=== PATIENT | male | born 1955 | race Caucasian/White ===

== ENCOUNTER 2016-08-25 20:51 | Inpatient (IN) | payer OTHER ==
[~2016-08-25] VITALS: Ht 162.6 cm; Wt 63.0 kg
[~2016-08-25 20:51] MED LIST: ADVAIR 100/501 DISK IH; ADVAIR 250/501 DISK IH; ALPRAZOLAM0.25 M2 PO; BENADRYL25 MG PO; BUPROPION XL150 MG PO; DALIRESP500 MCG PO; DELTASONE20 M1 PO; DOK PLUS TABLE1 EACH PO; DOXYCYCLINE HY100 M3 PO; DUONEB 2.5-0.5 M3 ML AEROSOL; DUONEB 2.5-0.5 M3 ML IH; FEOSOL45 MG PO; FERROUS SULFAT325 MG PO; LEVAQUIN500 MG PO; LEVAQUIN750 MG PO; LEVOFLOXACIN750 MG PO; LIPITOR40 MG PO; LORATADINE10 M2 PO; MIRTAZAPINE7.5 MG PO; MUCINEX600 MG PO; NICOTINE PATCH1 EAC1 TD; NICOTINE PATCH1 EAC2 TD; NOHOMEMEDS; NOVOLOG PE100 UNITS/ SC; PANTOPRAZOLE SO40 MG PO; PREDNISONE TAPER PO; PREDNISONE10 MG PO; PREDNISONE20 MG PO; PREDNISONE5 MG PO; PREDNISONE50 MG PO; PROTONIX40 MG PO; PROVENTIL,2.5 MG/0.5 IH; PROVENTIL,2.5 MG/3 M IH; Proventil,Ventolin H IH; SLOW RELEASE I142 M1 PO; SPIRIVA1 INHALATI IH; THEO-DUR,THEOC100 MG PO; TYLENOL EXTRA500 MG PO; TYLENOL REGULA325 MG PO; VENTOLIN HFA18 GM IH; VITAMIN D31000 UNI2 PO; VITAMIN D31000 UNIT PO; WELLBUTRIN XL150 MG PO
[2016-08-25 21:28] LABS: EOSINOPHIL (%) 0.1 % (0-5); HEMATOCRIT 39.9 % (38.0-50.0); IMMATURE GRANULOCYTE (%) 0.5 % (0.0-0.7); IMMATURE GRANULOCYTE COUNT 0.1 K/uL; INSTRUMENT ABS NEUTROPHIL CT 10.7 K/uL; LYMPHOCYTE COUNT 0.5 K/uL (1.0-2.8); MCH 27.9 PG (29.0-34.0); MCHC 29.6 G/DL (30.0-36.0); MCV 94.3 FL (86-99); MEAN PLAT.VOLUME 9.9 uM^3 (9.0-12.4); MONOCYTE (%) 4.8 % (3-12); MONOCYTE COUNT 0.6 K/uL (0-0.8); NEUTROPHIL (%) 90.1 % (45-76); NEUTROPHIL COUNT 10.7 K/uL (1.8-6.4); PLATELET COUNT 316 K/uL (156-360); RBC DIS.WIDTH-CV 13.3 % (11.8-14.6); RBC DIS.WIDTH-SD 46.2 % (39-53); RED BLOOD COUNT 4.23 M/uL (4.00-5.50); WHITE BLOOD COUNT 11.9 K/uL (4.1-10.2)
[2016-08-25 21:37] LABS: CHLORIDE 96 mEq/L (99-109); POTASSIUM 3.9 mEq/L (3.7-5.4); SODIUM 144 mEq/L (136-147)
[2016-08-25 21:38] LABS: INTER. NORMALIZED RATIO 1.1; PROTHROMBIN TIME 11.3 (9.2-11.2)
[2016-08-25 21:39] LABS: GLUCOSE 120 mg/dL (70-99)
[2016-08-25 21:40] LABS: ANION GAP 11 MEQ/L (2-14)
[2016-08-25 21:41] LABS: TOTAL BILIRUBIN 0.2 mg/dL (0.0-1.0)
[2016-08-25 21:43] LABS: ALKALINE PHOSPHATASE 71 IU/L (3-129); GFR ESTIMATE (CALCULATED) > 59 mL/min/
[2016-08-25 21:44] LABS: UREA NITROGEN (BUN) 19 mg/dL (9-23)
[2016-08-25 21:46] LABS: CREATINE KINASE 67 IU/L (1-294); TOTAL CK 67 IU/L (1-294)
[2016-08-25 21:49] LABS: TROP-I INTERPRETATION NEGATIVE; TROPONIN-I < 0.01 ng/mL (0.0-0.30)
[2016-08-25 21:56] LABS: CK-MB 4.2 ng/mL (0.0-4.9)
[2016-08-25] MEDS ORDERED: FOLIC ACID1 MG PO (21:58)
[2016-08-25] MEDS ORDERED: INCRUSE ELLI62.5 MCG IH (21:59)
[2016-08-25] MEDS ORDERED: LEVAQUIN750 MG PO (22:00)
[2016-08-25] MEDS ORDERED: LOPRESSOR25 MG PO (22:01)
[2016-08-25] MEDS ORDERED: PRAVACHOL20 MG PO (22:02)
[2016-08-25] MEDS ORDERED: PREDNISONE2.5 MG PO (22:03)
[2016-08-25] MEDS ORDERED: SENNA LAX8.6 MG PO (22:04)
[2016-08-25] MEDS ORDERED: THEOPHYLLINE400 MG PO (22:05)
[2016-08-25] MEDS ORDERED: CYANOCOBALAM1000 MCG PO (22:06)
[2016-08-25] MEDS ORDERED: ATIVAN0.5 MG PO ×2 (22:08→22:14)
[2016-08-25] MEDS ORDERED: VITAMIN C250 MG PO (22:08)
[2016-08-25] MEDS ORDERED: TESSALON PERLE100 MG PO (22:10)
[2016-08-25] MEDS ORDERED: ZOVIRAX OINTMEN15 GM TP (22:12)
[2016-08-25] MEDS ORDERED: ZYRTEC10 M3 PO (22:13)
[2016-08-25] MEDS ORDERED: DUONEB 2.5-0.5 M3 ML AEROSOL (22:13)
[2016-08-25] MEDS ORDERED: PREPARATION H O28 GM PR (22:14)
[2016-08-25] MEDS ORDERED: TUMS500 MG PO (22:15)
[2016-08-25 22:38] LABS: INFLUENZA A VIRAL ANTIGEN NEGATIVE; INFLUENZA B VIRAL ANTIGEN POSITIVE
[2016-08-26 01:43] LABS: BASE EXCESS 14.6 mEq/L (-3 to +3); BICARBONATE 41.2 mEq/L (22-26); CARBOXY HGB 1.9 % (0-5); COMMENTS - BLOOD GASES A+C+; DEVICE NC; METHEMOGLOBIN 1.1 % (0-1.5); O2 FLOW 3 L/MIN; PCO2 62 mm Hg (35-45); PO2 49 mm Hg (80-100); SITE LR; TOTAL RESP RATE 22 resp/min; pH 7.43 (7.35-7.45)
[2016-08-26 01:59] VITALS: BP 142/82
[2016-08-26 07:56] VITALS: BP 137/80
[2016-08-26 11:46] VITALS: BP 132/81
[2016-08-26 15:36] VITALS: BP 135/86
[2016-08-26 19:00] VITALS: BP 158/90
[2016-08-26 19:50] LABS: BASE EXCESS 12.7 mEq/L (-3 to +3); BICARBONATE 40.7 mEq/L (22-26); CARBOXY HGB 2.1 % (0-5); COMMENTS - BLOOD GASES A+C+; DEVICE NCH; METHEMOGLOBIN 1.4 % (0-1.5); O2 FLOW 9 L/MIN; PCO2 72 mm Hg (35-45); PO2 52 mm Hg (80-100); SITE LR; TOTAL RESP RATE 22 resp/min; pH 7.36 (7.35-7.45)
[2016-08-26 21:42] LABS: METH RESISTANT S AUREUS PCR NEGATIVE (NEGATIVE)
[2016-08-26 21:45] LABS: PROBE CHECK PASS; SPECIMEN PROCESSING CONTROL PASS
[2016-08-27 00:28] VITALS: BP 142/72
[2016-08-27 04:27] VITALS: BP 128/80
[2016-08-27 07:20] LABS: HEMATOCRIT 32.2 % (38.0-50.0); MCH 27.4 PG (29.0-34.0); MCHC 29.2 G/DL (30.0-36.0); MCV 93.9 FL (86-99); MEAN PLAT.VOLUME 10.5 uM^3 (9.0-12.4); PLATELET COUNT 249 K/uL (156-360); RBC DIS.WIDTH-CV 13.6 % (11.8-14.6); RBC DIS.WIDTH-SD 46.9 % (39-53); RED BLOOD COUNT 3.43 M/uL (4.00-5.50)
[2016-08-27 07:31] LABS: ANION GAP 4 MEQ/L (2-14); CHLORIDE 101 MEQ/L (99-109); GFR ESTIMATE (CALCULATED) > 59 mL/min/; GLUCOSE 139 mg/dL (70-99); POTASSIUM 4.2 MEQ/L (3.7-5.4); SAMPLE HEMOLYSIS CHECK 0; SAMPLE ICTERIC CHECK 0; SAMPLE LIPEMIA CHECK 0; SODIUM 145 MEQ/L (136-147); UREA NITROGEN (BUN) 19 mg/dL (9-23)
[2016-08-27 16:00] VITALS: BP 136/95
[2016-08-27 21:01] VITALS: BP 139/85
[2016-08-27 23:45] VITALS: BP 123/78
[2016-08-28 04:06] VITALS: BP 124/66
[2016-08-28 07:21] LABS: EOSINOPHIL (%) 0 % (0-5); HEMATOCRIT 34.1 % (38.0-50.0); IMMATURE GRANULOCYTE (%) 1.1 % (0.0-0.7); IMMATURE GRANULOCYTE COUNT 0.1 K/uL; INSTRUMENT ABS NEUTROPHIL CT 10.4 K/uL; LYMPHOCYTE COUNT 0.2 K/uL (1.0-2.8); MCH 27.5 PG (29.0-34.0); MCHC 28.7 G/DL (30.0-36.0); MCV 95.8 FL (86-99); MEAN PLAT.VOLUME 10.6 uM^3 (9.0-12.4); MONOCYTE (%) 2.8 % (3-12); MONOCYTE COUNT 0.3 K/uL (0-0.8); NEUTROPHIL (%) 94.2 % (45-76); NEUTROPHIL COUNT 10.4 K/uL (1.8-6.4); PLATELET COUNT 282 K/uL (156-360); RBC DIS.WIDTH-CV 13.7 % (11.8-14.6); RBC DIS.WIDTH-SD 48.7 % (39-53); RED BLOOD COUNT 3.56 M/uL (4.00-5.50); WHITE BLOOD COUNT 11.1 K/uL (4.1-10.2)
[2016-08-28 08:19] LABS: ANION GAP 7 MEQ/L (2-14); CHLORIDE 100 MEQ/L (99-109); GFR ESTIMATE (CALCULATED) > 59 mL/min/; GLUCOSE 151 mg/dL (70-99); POTASSIUM 4.1 MEQ/L (3.7-5.4); SAMPLE HEMOLYSIS CHECK 0; SAMPLE ICTERIC CHECK 0; SAMPLE LIPEMIA CHECK 0; SODIUM 146 MEQ/L (136-147); UREA NITROGEN (BUN) 25 mg/dL (9-23)
[2016-08-28 08:22] VITALS: BP 149/89
[2016-08-28 12:30] VITALS: BP 134/67
[2016-08-28 16:01] VITALS: BP 141/81
[2016-08-28 19:40] VITALS: BP 139/87
[2016-08-28 23:20] VITALS: BP 125/80
[2016-08-29 03:00] VITALS: BP 118/85
[2016-08-29 06:59] LABS: EOSINOPHIL (%) 0 % (0-5); IMMATURE GRANULOCYTE (%) 1.1 % (0.0-0.7); IMMATURE GRANULOCYTE COUNT 0.1 K/uL; INSTRUMENT ABS NEUTROPHIL CT 8.3 K/uL; LYMPHOCYTE COUNT 0.2 K/uL (1.0-2.8); MCH 27.6 PG (29.0-34.0); MCHC 28.8 G/DL (30.0-36.0); MCV 96.1 FL (86-99); MEAN PLAT.VOLUME 10.1 uM^3 (9.0-12.4); MONOCYTE (%) 2.9 % (3-12); MONOCYTE COUNT 0.3 K/uL (0-0.8); NEUTROPHIL (%) 93.6 % (45-76); NEUTROPHIL COUNT 8.3 K/uL (1.8-6.4); PLATELET COUNT 313 K/uL (156-360); RBC DIS.WIDTH-CV 13.6 % (11.8-14.6); RBC DIS.WIDTH-SD 48.4 % (39-53); RED BLOOD COUNT 3.33 M/uL (4.00-5.50); WHITE BLOOD COUNT 8.9 K/uL (4.1-10.2)
[2016-08-29 07:31] LABS: ANION GAP ND MEQ/L (2-14); CHLORIDE 99 MEQ/L (99-109); GFR ESTIMATE (CALCULATED) > 59 mL/min/; GLUCOSE 150 mg/dL (70-99); POTASSIUM 4.6 MEQ/L (3.7-5.4); SAMPLE HEMOLYSIS CHECK 0; SAMPLE ICTERIC CHECK 0; SAMPLE LIPEMIA CHECK 0; SODIUM 146 MEQ/L (136-147); UREA NITROGEN (BUN) 26 mg/dL (9-23)
[2016-08-29 07:35] LABS: CARBON DIOXIDE (BICARBONATE) > 40.0 MEQ/L (20-31)
[2016-08-29 08:30] VITALS: BP 156/90
[2016-08-29 11:41] VITALS: BP 137/76
[2016-08-29 16:53] VITALS: BP 127/83
[2016-08-29 19:10] VITALS: BP 138/76
[2016-08-30] VITALS (7 sets, daily range): BP systolic 122–154; BP diastolic 74–88
[2016-08-30 06:55] LABS: EOSINOPHIL (%) 0 % (0-5); HEMATOCRIT 33.1 % (38.0-50.0); IMMATURE GRANULOCYTE (%) 2.2 % (0.0-0.7); IMMATURE GRANULOCYTE COUNT 0.2 K/uL; INSTRUMENT ABS NEUTROPHIL CT 6.1 K/uL; LYMPHOCYTE COUNT 0.3 K/uL (1.0-2.8); MCH 27.1 PG (29.0-34.0); MCHC 28.1 G/DL (30.0-36.0); MCV 96.5 FL (86-99); MEAN PLAT.VOLUME 10.6 uM^3 (9.0-12.4); MONOCYTE (%) 4.5 % (3-12); MONOCYTE COUNT 0.3 K/uL (0-0.8); NEUTROPHIL (%) 89.5 % (45-76); NEUTROPHIL COUNT 6.1 K/uL (1.8-6.4); NRBC (%) 0.3 /100 WBC (0-0); PLATELET COUNT 346 K/uL (156-360); RBC DIS.WIDTH-CV 13.2 % (11.8-14.6); RBC DIS.WIDTH-SD 47.4 % (39-53); RED BLOOD COUNT 3.43 M/uL (4.00-5.50); WHITE BLOOD COUNT 6.8 K/uL (4.1-10.2)
[2016-08-30 07:38] LABS: ANION GAP ND MEQ/L (2-14); CHLORIDE 98 MEQ/L (99-109); GFR ESTIMATE (CALCULATED) > 59 mL/min/; GLUCOSE 134 mg/dL (70-99); POTASSIUM 4.7 MEQ/L (3.7-5.4); SAMPLE HEMOLYSIS CHECK 0; SAMPLE ICTERIC CHECK 0; SAMPLE LIPEMIA CHECK 0; SODIUM 147 MEQ/L (136-147); UREA NITROGEN (BUN) 28 mg/dL (9-23)
[2016-08-30 07:42] LABS: CARBON DIOXIDE (BICARBONATE) > 40.0 MEQ/L (20-31)
[2016-08-31 04:25] VITALS: BP 149/90
[2016-08-31 06:52] LABS: EOSINOPHIL (%) 0 % (0-5); HEMATOCRIT 34.3 % (38.0-50.0); IMMATURE GRANULOCYTE (%) 4.1 % (0.0-0.7); IMMATURE GRANULOCYTE COUNT 0.4 K/uL; INSTRUMENT ABS NEUTROPHIL CT 7.7 K/uL; LYMPHOCYTE COUNT 0.3 K/uL (1.0-2.8); MCH 26.9 PG (29.0-34.0); MCHC 28.6 G/DL (30.0-36.0); MCV 94.2 FL (86-99); MEAN PLAT.VOLUME 10.1 uM^3 (9.0-12.4); MONOCYTE (%) 6.6 % (3-12); MONOCYTE COUNT 0.6 K/uL (0-0.8); NEUTROPHIL (%) 86.2 % (45-76); NEUTROPHIL COUNT 7.7 K/uL (1.8-6.4); NRBC (%) 0.2 /100 WBC (0-0); PLATELET COUNT 355 K/uL (156-360); RBC DIS.WIDTH-CV 13.2 % (11.8-14.6); RBC DIS.WIDTH-SD 45.6 % (39-53); RED BLOOD COUNT 3.64 M/uL (4.00-5.50)
[2016-08-31 06:55] LABS: WHITE BLOOD COUNT 8.9 K/uL (4.1-10.2)
[2016-08-31 06:57] LABS: ANION GAP ND MEQ/L (2-14); CHLORIDE 97 MEQ/L (99-109); GFR ESTIMATE (CALCULATED) > 59 mL/min/; GLUCOSE 132 mg/dL (70-99); POTASSIUM 4.3 MEQ/L (3.7-5.4); SAMPLE HEMOLYSIS CHECK 0; SAMPLE ICTERIC CHECK 0; SAMPLE LIPEMIA CHECK 0; SODIUM 146 MEQ/L (136-147); UREA NITROGEN (BUN) 26 mg/dL (9-23)
[2016-08-31 07:04] LABS: CARBON DIOXIDE (BICARBONATE) > 40.0 MEQ/L (20-31)
[2016-08-31 07:30] VITALS: BP 155/93
[2016-08-31 11:30] VITALS: BP 144/77
[2016-08-31 15:32] VITALS: BP 151/97
[2016-08-31 19:00] VITALS: BP 142/84
[2016-08-31 23:27] VITALS: BP 136/72
[2016-09-01 04:50] VITALS: BP 127/79
[2016-09-01 06:45] LABS: EOSINOPHIL (%) 0.1 % (0-5); HEMATOCRIT 37.9 % (38.0-50.0); IMMATURE GRANULOCYTE (%) 3.8 % (0.0-0.7); IMMATURE GRANULOCYTE COUNT 0.3 K/uL; INSTRUMENT ABS NEUTROPHIL CT 6.7 K/uL; LYMPHOCYTE COUNT 0.8 K/uL (1.0-2.8); MCH 27.3 PG (29.0-34.0); MCHC 28.5 G/DL (30.0-36.0); MCV 95.9 FL (86-99); MEAN PLAT.VOLUME 10.1 uM^3 (9.0-12.4); MONOCYTE (%) 10.4 % (3-12); MONOCYTE COUNT 0.9 K/uL (0-0.8); NEUTROPHIL (%) 76.4 % (45-76); NEUTROPHIL COUNT 6.7 K/uL (1.8-6.4); NRBC (%) 0.2 /100 WBC (0-0); PLATELET COUNT 361 K/uL (156-360); RBC DIS.WIDTH-CV 13.2 % (11.8-14.6); RBC DIS.WIDTH-SD 47.1 % (39-53); RED BLOOD COUNT 3.95 M/uL (4.00-5.50); WHITE BLOOD COUNT 8.8 K/uL (4.1-10.2)
[2016-09-01 07:18] VITALS: BP 118/79
[2016-09-01 07:18] LABS: ANION GAP ND MEQ/L (2-14); CHLORIDE 94 MEQ/L (99-109); GFR ESTIMATE (CALCULATED) > 59 mL/min/; POTASSIUM 3.8 MEQ/L (3.7-5.4); SAMPLE HEMOLYSIS CHECK 0; SAMPLE ICTERIC CHECK 0; SAMPLE LIPEMIA CHECK 0; SODIUM 145 MEQ/L (136-147); UREA NITROGEN (BUN) 26 mg/dL (9-23)
[2016-09-01 07:19] LABS: CARBON DIOXIDE (BICARBONATE) > 40.0 MEQ/L (20-31); GLUCOSE 84 mg/dL (70-99)
[2016-09-01 11:45] VITALS: BP 126/85
[2016-09-01 16:03] VITALS: BP 121/81
[2016-09-01 20:00] VITALS: BP 142/85
[2016-09-01 23:55] VITALS: BP 109/68
[2016-09-02 04:00] VITALS: BP 115/78
[2016-09-02 07:32] VITALS: BP 118/77
[2016-09-02 11:42] VITALS: BP 116/80
[2016-09-02 15:56] VITALS: BP 120/81
[2016-09-02 20:00] VITALS: BP 128/82
[2016-09-03 00:10] VITALS: BP 139/88
[2016-09-03 04:25] VITALS: BP 114/67
[2016-09-03 08:47] VITALS: BP 130/67
[2016-09-03 12:09] VITALS: BP 127/76
[2016-09-03 16:40] VITALS: BP 127/75
[2016-09-03 19:34] VITALS: BP 131/84
[2016-09-04] VITALS (7 sets, daily range): BP systolic 118–139; BP diastolic 74–86
[2016-09-04 09:11] LABS: HEMATOCRIT 33.3 % (38.0-50.0); MCH 27.6 PG (29.0-34.0); MCHC 28.8 G/DL (30.0-36.0); MCV 95.7 FL (86-99); MEAN PLAT.VOLUME 11.1 uM^3 (9.0-12.4); PLATELET COUNT 300 K/uL (156-360); RBC DIS.WIDTH-SD 49.1 % (39-53); RED BLOOD COUNT 3.48 M/uL (4.00-5.50); WHITE BLOOD COUNT 6.7 K/uL (4.1-10.2)
[2016-09-04 10:03] LABS: ANION GAP 9 MEQ/L (2-14); CHLORIDE 99 MEQ/L (99-109); GLUCOSE 88 mg/dL (70-99); POTASSIUM 4.4 MEQ/L (3.7-5.4); SAMPLE HEMOLYSIS CHECK 0; SAMPLE ICTERIC CHECK 0; SAMPLE LIPEMIA CHECK 0; SODIUM 146 MEQ/L (136-147); UREA NITROGEN (BUN) 30 mg/dL (9-23)
[2016-09-04 10:52] LABS: GFR ESTIMATE (CALCULATED) > 59 mL/min/
[2016-09-05 04:58] VITALS: BP 125/76
[2016-09-05 08:17] VITALS: BP 124/77
[2016-09-05] MEDS ORDERED: PREDNISONE20 MG PO (10:48)
[2016-09-05] MEDS ORDERED: AUGMENTIN875 MG PO (10:48)
[2016-09-05 11:25] VITALS: BP 118/78
== END 2016-09-05 14:54 | DRG 189 ==
LOC: EME 20:51 → EDOF 08-26 00:40 → 4EAST 08-26 00:40
PROVIDERS: Emergency Medicine; Hospitalist; Student in an Organized Health Care Education/Training Program
PROC: 5A09358 Assistance with Respiratory Ventilation, Less than 24 Consecutive Hours, Intermittent Positive Airway Pressure (ICD-10-PCS; principal; 2016-08-25)
DX: J96.21 Acute and chronic respiratory failure with hypoxia (principal); J96.22 Acute and chronic respiratory failure with hypercapnia; J44.1 Chronic obstructive pulmonary disease with (acute) exacerbation; J44.0 Chronic obstructive pulmonary disease with (acute) lower respiratory infection; J15.212 Pneumonia due to Methicillin resistant Staphylococcus aureus; J10.08 Influenza due to other identified influenza virus with other specified pneumonia; I47.1 Supraventricular tachycardia; Z99.81 Dependence on supplemental oxygen; E78.5 Hyperlipidemia, unspecified; K21.9 Gastro-esophageal reflux disease without esophagitis; F41.9 Anxiety disorder, unspecified; Z87.891 Personal history of nicotine dependence; Z66 Do not resuscitate
CPT/HCPCS: 36600; 71010; 71020; 71275; 80048; 80053; 80202; 82550; 82553; 82565; 82803; 83605; 83880; 84484; 85025; 85027; 85610; 87040; 87070; 87077; 87147; 87186; 87205; 87502; 87641; 93005; 94002; 94640; 94640 76; 94667; 94668; 94760; 94799; 97530 GO; 97530 GP; 99202; 99281; 99285; J0153; J0456; J0696; J1100; J1650; J2930; J3370; J3475; J7030; J7050; J7512